=== PATIENT | female | born 1960 | race Caucasian/White ===

== ENCOUNTER → 2017-01-20 | Outpatient (CLI) | payer BC ==
--- NOTE | 2017-01-20 18:11 | PCVCIMAG ---
APPROVED REPORT Study performed: 01/20/2017 13:51:13 EXAM: Comprehensive 2D, Doppler, and color-flow Echocardiogram Patient Location: Echo lab Status: routine Other Information Study Quality: Good Risk Factors: Cardiac Risk Factors: HTN Indications Palpitations 2D Dimensions LVEF(%): 53.52 (>50%) IVSd: 8.91 (7-11mm) LVDd: 42.91 mm PWd: 8.81 (7-11mm) LVDs: 31.17 (25-40mm) Left Atrium: 35.50 (27-40mm) Aortic Root: 31.69 mm LV Single Plane 4CH: 55.62 % LV Single Plane 2CH: 61.06 %Pan's LVEF: 58.34 % Biplane EF: 59.5 % Volumes Left Atrial Volume (Systole) Single Plane 4CH: 53.14 mLSingle Plane 2CH: 63.12 mL LA ESV Index: 34.00 mL/m2 Aortic Valve AoV Peak Jameson.: 1.28 m/s AO Peak Gr.: 6.54 mmHgLVOT Max P.89 mmHg LVOT Max V: 0.85 m/s Mitral Valve E/A Ratio: 0.8 MV Decel. Time: 317.89 ms MV E Max Jameson.: 0.53 m/s MV A Jameson.: 0.68 m/s IVRT: 110.73 ms Pulmonary Valve PV Peak Jameson.: 0.79 m/sPV Peak Gr.: 2.50 mmHg Pulmonary Vein P Vein S: 0.28 m/sP Vein A: 0.41 m/s P Vein D: 0.47 m/sP Vein A Dur.: 93.4 msec P Vein S/D Ratio: 0.60 Tricuspid Valve TR Peak Jameson.: 2.12 m/s TR Peak Gr.: 17.91 mmHg Left Ventricle The left ventricle is normal size. There is normal LV segmental wall motion. There is normal left ventricular wall thickness. Left ventricular systolic function is normal. The left ventricular ejection fraction is within the normal range. LVEF is 55%. Grade I - abnormal relaxation pattern. Right Ventricle The right ventricle is normal size. The right ventricular systolic function is normal. Atria The left atrium size is normal. The right atrium size is normal. Aortic Valve The aortic valve is normal in structure. No aortic regurgitation is present. There is no aortic valvular stenosis. Mitral Valve The mitral valve is normal in structure. Trace mitral regurgitation. No evidence of mitral valve stenosis. Tricuspid Valve The tricuspid valve is normal in structure. Trace tricuspid regurgitation with PAP of 25 mmHg. Pulmonic Valve The pulmonary valve is normal in structure. Trace pulmonic regurgitation. Great Vessels The aortic root is normal in size. IVC is normal in size and collapses with >50% inspiration Pericardium There is no pericardial effusion. <Conclusion> The left ventricle is normal size. Left ventricular systolic function is normal. The left ventricular ejection fraction is within the normal range. LVEF is 55%. Grade I - abnormal relaxation pattern. The right ventricle is normal size. The left atrium size is normal. The aortic valve is normal in structure. Trace mitral regurgitation. Trace tricuspid regurgitation with PAP of 25 mmHg. There is no pericardial effusion.
== END | disposition home or self-care (01) ==
LOC: PCVCIMAG 13:54
PROVIDERS: ATTEND Internal Medicine Cardiovascular Disease
DX: I34.0 Nonrheumatic mitral (valve) insufficiency (principal); I07.1 Rheumatic tricuspid insufficiency; I37.1 Nonrheumatic pulmonary valve insufficiency; I10 Essential (primary) hypertension; E78.5 Hyperlipidemia, unspecified; Z82.49 Family history of ischemic heart disease and other diseases of the circulatory system
CPT/HCPCS: 93306